=== PATIENT | male | born 1935 | race Caucasian/White ===

== ENCOUNTER 2017-12-27 17:29 | Inpatient (IN) | payer MEDICARE ==
[~2017-12-27] VITALS: Ht 175.3 cm; Wt 108.1 kg
[2017-12-27 18:29] LABS: HEMATOCRIT 33.4 % (39.0-50.0); HEMOGLOBIN 10.7 g/dl (14.0-18.0); IMMATURE GRANULOCYTES 0.6 % (0.0-5.0); MEAN CELL VOLUME 89.5 fL CALC (80.0-100.0); MEAN CORPUSCULAR HGB 28.7 pG CALC (26.0-32.0); NEUT# 6.12 thou/uL (1.82-7.42); RED BLOOD COUNT 3.73 mill/uL (4.70-6.10); RED CELL DISTRI WIDTH 13.2 % (11.5-15.5)
[2017-12-27 18:42] LABS: ALBUMIN 3.6 g/dL (3.2-5.0); BILIRUBIN, TOTAL 0.4 mg/dL (0.0-1.4); CREATININE 2.1 mg/dL (0.7-1.3); POTASSIUM 3.9 mmol/l (3.5-5.1); TOTAL PROTEIN 6.5 g/dL (6.3-8.2)
[2017-12-27] MEDS ORDERED: BUMETANIDE1 MG PO (18:42)
[2017-12-27] MEDS ORDERED: DILTIAZEM CD300 MG PO (18:43)
[2017-12-27] MEDS ORDERED: TAMSULOSIN HCL0.4 MG PO (18:44)
[2017-12-27] MEDS ORDERED: METO50TA52 PO (18:44)
[2017-12-27] MEDS ORDERED: FINASTERIDE5 MG PO (18:45)
[2017-12-27] MEDS ORDERED: VITAMIN D2 PO (18:46)
[2017-12-27] MEDS ORDERED: ASPIRIN81 MG PO (18:47)
[2017-12-27] MEDS ORDERED: HYDRALAZINE25 MG PO (18:49)
[2017-12-27] MEDS ORDERED: AVAPRO300 MG PO (18:50)
[2017-12-27] MEDS ORDERED: ONGLYZA5 MG PO (18:50)
[2017-12-27] MEDS ORDERED: CLONIDINE0.1 MG PO (18:51)
[2017-12-27] MEDS ORDERED: KLOR-CON 1010 MEQ PO (18:51)
[2017-12-27] MEDS ORDERED: LIPITOR20 MG PO (18:51)
[2017-12-27] MEDS ORDERED: LEVOTHYROXIN50 MCG PO (18:52)
[2017-12-27] MEDS ORDERED: ADVAIR DISK1 INH (18:52)
[2017-12-27] MEDS ORDERED: LANTUS100 UNIT/M SC (18:53)
[2017-12-27] MEDS ORDERED: PRADAXA150 MG PO (18:54)
[2017-12-27] MEDS ORDERED: HUMALOG100 UNIT/M SC (18:54)
[2017-12-27] MEDS ORDERED: B121000 MCG PO (18:55)
[2017-12-27] MEDS ORDERED: METOLAZONE2.5 MG PO (18:55)
[2017-12-27] MEDS ORDERED: NITROSTAT0.3 MG SL (18:55)
[2017-12-27 20:32] LABS: URINE BILIRUBIN - DIPSTICK NEGATIVE (NEGATIVE); URINE BLOOD DIPSTICK NEGATIVE (NEGATIVE); URINE CLARITY CLEAR; URINE COLOR YELLOW; URINE GLUCOSE - DIPSTICK 100 mg/dL (NEGATIVE); URINE KETONE NEGATIVE (NEGATIVE); URINE LEUK ESTERASE NEGATIVE (NEGATIVE); URINE NITRITE - DIPSTICK NEGATIVE (Negative); URINE PH 6.5 (4.5-8.0); URINE PROTEIN - DIPSTICK 100 mg/dL (NEG-TRACE); URINE SPECIFIC GRAVITY >=1.030; URINE UROBILINOGEN - DIPSTICK 0.2 E.U./dL (0.2)
[2017-12-27 20:39] LABS: URINE RBC 0-2 RBC/hpf (0-5); URINE WBC 0-2 WBC/hpf (0-5)
[2017-12-27 21:05] VITALS: BP 183/80
[2017-12-28] VITALS (22 sets, daily range): BP systolic 113–174; BP diastolic 57–80
[2017-12-29] VITALS (20 sets, daily range): BP systolic 117–175; BP diastolic 60–96
[2017-12-29 05:31] LABS: HEMATOCRIT 37.2 % (39.0-50.0); HEMOGLOBIN 11.9 g/dl (14.0-18.0); IMMATURE GRANULOCYTES 0.4 % (0.0-5.0); MEAN CELL VOLUME 89.2 fL CALC (80.0-100.0); MEAN CORPUSCULAR HGB 28.5 pG CALC (26.0-32.0); NEUT# 5.87 thou/uL (1.82-7.42); RED BLOOD COUNT 4.17 mill/uL (4.70-6.10)
[2017-12-29 05:54] LABS: ALBUMIN 3.4 g/dL (3.2-5.0); BILIRUBIN, TOTAL 0.4 mg/dL (0.0-1.4); CREATININE 2.4 mg/dL (0.7-1.3); TOTAL PROTEIN 6.2 g/dL (6.3-8.2)
[2017-12-30] VITALS (15 sets, daily range): BP systolic 113–165; BP diastolic 60–81
[2017-12-30 04:50] LABS: HEMATOCRIT 36.1 % (39.0-50.0); HEMOGLOBIN 11.5 g/dl (14.0-18.0); IMMATURE GRANULOCYTES 0.5 % (0.0-5.0); MEAN CELL VOLUME 88.7 fL CALC (80.0-100.0); MEAN CORPUSCULAR HGB 28.3 pG CALC (26.0-32.0); MEAN CORPUSCULAR HGB CONC 31.9 g/L CALC (32.0-36.0); NEUT# 5.36 thou/uL (1.82-7.42); RED BLOOD COUNT 4.07 mill/uL (4.70-6.10); RED CELL DISTRI WIDTH 12.7 % (11.5-15.5)
[2017-12-30 05:09] LABS: ALBUMIN 3.3 g/dL (3.2-5.0); BILIRUBIN, TOTAL 0.5 mg/dL (0.0-1.4); CREATININE 2.2 mg/dL (0.7-1.3); MAGNESIUM 1.8 mg/dL (1.6-2.3); TOTAL PROTEIN 5.8 g/dL (6.3-8.2)
[2017-12-31] VITALS (7 sets, daily range): BP systolic 119–153; BP diastolic 61–74
[2017-12-31 05:55] LABS: HEMATOCRIT 35.7 % (39.0-50.0); HEMOGLOBIN 11.3 g/dl (14.0-18.0); IMMATURE GRANULOCYTES 0.4 % (0.0-5.0); MEAN CELL VOLUME 89.3 fL CALC (80.0-100.0); MEAN CORPUSCULAR HGB 28.3 pG CALC (26.0-32.0); MEAN CORPUSCULAR HGB CONC 31.7 g/L CALC (32.0-36.0); NEUT# 6.27 thou/uL (1.82-7.42); RED CELL DISTRI WIDTH 12.9 % (11.5-15.5)
[2017-12-31 06:15] LABS: ALBUMIN 3.2 g/dL (3.2-5.0); BILIRUBIN, TOTAL 0.5 mg/dL (0.0-1.4); CREATININE 2.3 mg/dL (0.7-1.3); MAGNESIUM 1.9 mg/dL (1.6-2.3); POTASSIUM 3.2 mmol/l (3.5-5.1); TOTAL PROTEIN 5.7 g/dL (6.3-8.2)
== END 2017-12-31 14:17 | disposition home or self-care (01) | DRG 291 ==
LOC: ED 17:29 → ED-I 19:38 → ED 20:24 → MS2 20:25 → ICU 12-28 11:36 → MS2 12-28 11:36 → ICU 12-28 11:59
PROVIDERS: Internal Medicine; ADMIT Internal Medicine; ATTEND Internal Medicine Nephrology
PROC: 0T9B70Z Drainage of Bladder with Drainage Device, Via Natural or Artificial Opening (ICD-10-PCS; principal; 2017-12-27)
DX: I13.0 Hypertensive heart and chronic kidney disease with heart failure and stage 1 through stage 4 chronic kidney disease, or unspecified chronic kidney disease (principal); I50.33 Acute on chronic diastolic (congestive) heart failure; J96.12 Chronic respiratory failure with hypercapnia; J44.9 Chronic obstructive pulmonary disease, unspecified; E11.22 Type 2 diabetes mellitus with diabetic chronic kidney disease; E11.21 Type 2 diabetes mellitus with diabetic nephropathy; N18.3 Chronic kidney disease, stage 3 (moderate); I25.119 Atherosclerotic heart disease of native coronary artery with unspecified angina pectoris; E78.5 Hyperlipidemia, unspecified; I48.0 Paroxysmal atrial fibrillation; G47.33 Obstructive sleep apnea (adult) (pediatric); E55.9 Vitamin D deficiency, unspecified; E03.9 Hypothyroidism, unspecified; N40.0 Benign prostatic hyperplasia without lower urinary tract symptoms; D63.1 Anemia in chronic kidney disease; E66.01 Morbid (severe) obesity due to excess calories; Z95.810 Presence of automatic (implantable) cardiac defibrillator; Z68.37 Body mass index [BMI] 37.0-37.9, adult; Z79.01 Long term (current) use of anticoagulants; Z79.4 Long term (current) use of insulin
CPT/HCPCS: G0378

== ENCOUNTER 2018-03-23 16:52 | Inpatient (IN) | payer MEDICARE ==
[~2018-03-23] VITALS: Ht 175.3 cm; Wt 108.8 kg
[~2018-03-23 16:52] MED LIST: ADVAIR DISK1 INH; ASPIRIN81 MG PO; AVAPRO300 MG PO; B121000 MCG PO; BUMETANIDE1 MG PO; CLONIDINE0.1 MG PO; DILTIAZEM CD300 MG PO; FINASTERIDE5 MG PO; HUMALOG100 UNIT/M SC; HYDRALAZINE25 MG PO; KLOR-CON 1010 MEQ PO; LANTUS100 UNIT/M SC; LEVOTHYROXIN50 MCG PO; LIPITOR20 MG PO; METO50TA52 PO; METOLAZONE2.5 MG PO; NITROSTAT0.3 MG SL; ONGLYZA5 MG PO; PRADAXA150 MG PO; TAMSULOSIN HCL0.4 MG PO; VITAMIN D2 PO
[2018-03-23 18:03] LABS: HEMATOCRIT 39.3 % (39.0-50.0); HEMOGLOBIN 12.4 g/dl (14.0-18.0); IMMATURE GRANULOCYTES 0.5 % (0.0-5.0); MEAN CELL VOLUME 88.5 fL CALC (80.0-100.0); MEAN CORPUSCULAR HGB 27.9 pG CALC (26.0-32.0); MEAN CORPUSCULAR HGB CONC 31.6 g/L CALC (32.0-36.0); NEUT# 6.45 thou/uL (1.82-7.42); RED BLOOD COUNT 4.44 mill/uL (4.70-6.10); RED CELL DISTRI WIDTH 13.2 % (11.5-15.5)
[2018-03-23 18:19] LABS: ALBUMIN 4.1 g/dL (3.2-5.0); CREATININE 1.8 mg/dL (0.7-1.3); POTASSIUM 4.2 mmol/l (3.5-5.1); TOTAL PROTEIN 7.1 g/dL (6.3-8.2)
[2018-03-23 21:21] VITALS: BP 154/72
[2018-03-24] VITALS: BP 145/73
[2018-03-24 04:25] VITALS: BP 143/70
[2018-03-24 06:31] LABS: CHOLESTEROL HDL RATIO 3.3 (<4.4 (CALC))
[2018-03-24 08:00] VITALS: BP 138/77
[2018-03-24 11:20] VITALS: BP 145/76
[2018-03-24 16:02] VITALS: BP 119/6
[2018-03-24 19:40] VITALS: BP 98/59
[2018-03-25] VITALS: BP 122/64
[2018-03-25 04:15] VITALS: BP 127/69
[2018-03-25 05:41] LABS: HEMATOCRIT 35.6 % (39.0-50.0); HEMOGLOBIN 11.1 g/dl (14.0-18.0); IMMATURE GRANULOCYTES 0.2 % (0.0-5.0); MEAN CORPUSCULAR HGB 27.8 pG CALC (26.0-32.0); MEAN CORPUSCULAR HGB CONC 31.2 g/L CALC (32.0-36.0); NEUT# 5.46 thou/uL (1.82-7.42); RED CELL DISTRI WIDTH 13.3 % (11.5-15.5)
[2018-03-25 06:19] LABS: ALBUMIN 3.4 g/dL (3.2-5.0); ALKALINE PHOSPHATASE 75 u/l (38-126); AMYLASE < 30 u/l (30-110); ANION GAP 15 (6-22 (CALC)); BILIRUBIN, TOTAL 0.5 mg/dL (0.0-1.4); BUN 24 mg/dL (8-23); BUN/CREATININE RATIO 11 (12-20 (CALC)); CARBON DIOXIDE 31 mmol/l (22-30); CHLORIDE 100 mmol/l (95-108); CREATININE 2.1 mg/dL (0.7-1.3); GFR 30 ML/MIN (>=60 (CALC)); GFR FOR AFR.AMER. 37 ML/MIN (>=60 (CALC)); LIPASE 38 u/l (23-300); MAGNESIUM 2.1 mg/dL (1.6-2.3); POTASSIUM 3.9 mmol/l (3.5-5.1); SGOT/AST 13 u/l (19-48); SODIUM 142 mmol/l (137-146); TOTAL PROTEIN 5.8 g/dL (6.3-8.2)
[2018-03-25 07:37] VITALS: BP 129/70
[2018-03-25 11:25] VITALS: BP 138/73
[2018-03-25 15:11] VITALS: BP 122/60
[2018-03-25 20:16] VITALS: BP 128/64
[2018-03-26] VITALS: BP 135/73
[2018-03-26 04:08] VITALS: BP 149/82
[2018-03-26 07:44] VITALS: BP 140/77
[2018-03-26 11:02] VITALS: BP 145/71
[2018-03-26 12:34] LABS: MAGNESIUM 2.1 mg/dL (1.6-2.3)
[2018-03-26 15:07] VITALS: BP 129/65
[2018-03-26 18:55] VITALS: BP 123/68
[2018-03-27 00:08] VITALS: BP 140/69
[2018-03-27 04:21] VITALS: BP 152/74
[2018-03-27 07:49] VITALS: BP 145/78
[2018-03-27 07:49] LABS: CREATININE 1.9 mg/dL (0.7-1.3); MAGNESIUM 2.4 mg/dL (1.6-2.3)
[2018-03-27 07:58] LABS: POTASSIUM 5.2 mmol/l (3.5-5.1)
[2018-03-27 10:45] VITALS: BP 144/69
[2018-03-27] MEDS ORDERED: DOXYCYCL HYC100 MG PO (12:23)
[2018-03-27] MEDS ORDERED: MEDDOSEPAK PO (12:23)
[2018-03-27 14:57] VITALS: BP 133/56
[2018-03-27 14:59] VITALS: BP 133/56
== END 2018-03-27 16:56 | disposition home or self-care (01) | DRG 190 ==
LOC: ED 16:52 → ED-I 17:23 → ED 19:10 → MS2 19:11
PROVIDERS: Emergency Medicine; Internal Medicine Nephrology; Nurse Practitioner Family; ADMIT Internal Medicine; ATTEND Internal Medicine
DX: J44.1 Chronic obstructive pulmonary disease with (acute) exacerbation (principal); J18.9 Pneumonia, unspecified organism; I13.0 Hypertensive heart and chronic kidney disease with heart failure and stage 1 through stage 4 chronic kidney disease, or unspecified chronic kidney disease; J44.0 Chronic obstructive pulmonary disease with (acute) lower respiratory infection; I50.9 Heart failure, unspecified; E11.22 Type 2 diabetes mellitus with diabetic chronic kidney disease; E03.9 Hypothyroidism, unspecified; M19.90 Unspecified osteoarthritis, unspecified site; D63.8 Anemia in other chronic diseases classified elsewhere; N18.3 Chronic kidney disease, stage 3 (moderate); E78.5 Hyperlipidemia, unspecified; G47.33 Obstructive sleep apnea (adult) (pediatric); E66.9 Obesity, unspecified; K59.00 Constipation, unspecified; Z95.810 Presence of automatic (implantable) cardiac defibrillator; Z68.34 Body mass index [BMI] 34.0-34.9, adult; Z95.5 Presence of coronary angioplasty implant and graft; Z99.81 Dependence on supplemental oxygen; Z79.02 Long term (current) use of antithrombotics/antiplatelets
CPT/HCPCS: G0378

== ENCOUNTER 2018-04-20 11:36 | Inpatient (IN) | payer MEDICARE ==
[~2018-04-20] VITALS: Ht 175.3 cm; Wt 108.6 kg
[~2018-04-20 11:36] MED LIST changes: +DOXYCYCL HYC100 MG PO; +MEDDOSEPAK PO
[2018-04-20 12:21] LABS: HEMATOCRIT 34.7 % (39.0-50.0); HEMOGLOBIN 10.7 g/dl (14.0-18.0); IMMATURE GRANULOCYTES 0.5 % (0.0-5.0); MEAN CORPUSCULAR HGB 27.4 pG CALC (26.0-32.0); MEAN CORPUSCULAR HGB CONC 30.8 g/L CALC (32.0-36.0); NEUT# 7.18 thou/uL (1.82-7.42); RED BLOOD COUNT 3.9 mill/uL (4.70-6.10); RED CELL DISTRI WIDTH 14.1 % (11.5-15.5)
[2018-04-20 12:35] LABS: ALBUMIN 3.9 g/dL (3.2-5.0); BILIRUBIN, TOTAL 0.7 mg/dL (0.0-1.4); CREATININE 2.7 mg/dL (0.7-1.3)
[2018-04-20 12:36] LABS: POTASSIUM 5.4 mmol/l (3.5-5.1); TOTAL PROTEIN 7.2 g/dL (6.3-8.2)
[2018-04-20] MEDS ORDERED: ONGLYZA5 MG PO (12:50)
[2018-04-20] MEDS ORDERED: ADVAIR DISK1 INH (12:53)
[2018-04-20 14:03] LABS: URINE BILIRUBIN - DIPSTICK NEGATIVE (NEGATIVE); URINE BLOOD DIPSTICK NEGATIVE (NEGATIVE); URINE COLOR YELLOW; URINE GLUCOSE - DIPSTICK NEGATIVE (NEGATIVE); URINE KETONE NEGATIVE (NEGATIVE); URINE LEUK ESTERASE NEGATIVE (NEGATIVE); URINE NITRITE - DIPSTICK NEGATIVE (Negative); URINE PROTEIN - DIPSTICK 100 mg/dL (NEG-TRACE); URINE UROBILINOGEN - DIPSTICK 0.2 E.U./dL (0.2)
[2018-04-20 14:21] LABS: URINE RBC 0-2 RBC/hpf (0-5); URINE WBC 0-2 WBC/hpf (0-5)
[2018-04-20 16:20] VITALS: BP 116/67
[2018-04-20 20:23] VITALS: BP 120/61
[2018-04-21 00:19] VITALS: BP 136/73
[2018-04-21 04:17] VITALS: BP 121/60
[2018-04-21 05:16] LABS: HEMATOCRIT 32.2 % (39.0-50.0); HEMOGLOBIN 9.9 g/dl (14.0-18.0); IMMATURE GRANULOCYTES 0.8 % (0.0-5.0); MEAN CELL VOLUME 90.2 fL CALC (80.0-100.0); MEAN CORPUSCULAR HGB 27.7 pG CALC (26.0-32.0); MEAN CORPUSCULAR HGB CONC 30.7 g/L CALC (32.0-36.0); NEUT# 5.28 thou/uL (1.82-7.42); RED BLOOD COUNT 3.57 mill/uL (4.70-6.10); RED CELL DISTRI WIDTH 13.9 % (11.5-15.5)
[2018-04-21 05:41] LABS: ALBUMIN 3.3 g/dL (3.2-5.0); ALKALINE PHOSPHATASE 96 u/l (38-126); AMYLASE < 30 u/l (30-110); ANION GAP 17 (6-22 (CALC)); BILIRUBIN, TOTAL 0.4 mg/dL (0.0-1.4); BUN 36 mg/dL (8-23); BUN/CREATININE RATIO 13 (12-20 (CALC)); CARBON DIOXIDE 28 mmol/l (22-30); CHLORIDE 96 mmol/l (95-108); CREATININE 2.8 mg/dL (0.7-1.3); GFR 22 ML/MIN (>=60 (CALC)); GFR FOR AFR.AMER. 26 ML/MIN (>=60 (CALC)); LIPASE 32 u/l (23-300); MAGNESIUM 2.1 mg/dL (1.6-2.3); SGOT/AST 15 u/l (19-48); SODIUM 135 mmol/l (137-146)
[2018-04-21 05:45] LABS: POTASSIUM 5.6 mmol/l (3.5-5.1)
[2018-04-21 07:52] VITALS: BP 125/68
[2018-04-21 11:22] VITALS: BP 113/64
[2018-04-21 15:37] VITALS: BP 107/78
[2018-04-21 19:00] VITALS: BP 112/67
[2018-04-22] VITALS (8 sets, daily range): BP systolic 94–132; BP diastolic 52–77
[2018-04-23 04:00] VITALS: BP 111/57
[2018-04-23 04:59] LABS: HEMATOCRIT 33.4 % (39.0-50.0); HEMOGLOBIN 10.1 g/dl (14.0-18.0); IMMATURE GRANULOCYTES 0.7 % (0.0-5.0); MEAN CELL VOLUME 90.8 fL CALC (80.0-100.0); MEAN CORPUSCULAR HGB 27.4 pG CALC (26.0-32.0); MEAN CORPUSCULAR HGB CONC 30.2 g/L CALC (32.0-36.0); NEUT# 6.28 thou/uL (1.82-7.42); RED BLOOD COUNT 3.68 mill/uL (4.70-6.10); RED CELL DISTRI WIDTH 13.5 % (11.5-15.5)
[2018-04-23 05:41] LABS: ALBUMIN 3.4 g/dL (3.2-5.0); BILIRUBIN, TOTAL 0.7 mg/dL (0.0-1.4); CREATININE 3.1 mg/dL (0.7-1.3); MAGNESIUM 2.3 mg/dL (1.6-2.3); POTASSIUM 5.1 mmol/l (3.5-5.1); TOTAL PROTEIN 6.1 g/dL (6.3-8.2)
[2018-04-23 08:12] VITALS: BP 113/67
[2018-04-23 11:39] VITALS: BP 131/67
[2018-04-23 14:44] VITALS: BP 118/58
[2018-04-23 19:27] VITALS: BP 124/57
[2018-04-23 23:47] VITALS: BP 131/77
[2018-04-24 04:27] VITALS: BP 102/79
[2018-04-24 07:23] VITALS: BP 148/74
[2018-04-24 11:22] VITALS: BP 104/62
[2018-04-24 15:05] VITALS: BP 106/58
[2018-04-24 19:34] VITALS: BP 109/66
[2018-04-24 23:32] VITALS: BP 110/71
[2018-04-25 04:48] VITALS: BP 119/73
[2018-04-25 05:22] LABS: HEMATOCRIT 31.6 % (39.0-50.0); HEMOGLOBIN 9.6 g/dl (14.0-18.0); IMMATURE GRANULOCYTES 0.9 % (0.0-5.0); MEAN CELL VOLUME 89.8 fL CALC (80.0-100.0); MEAN CORPUSCULAR HGB 27.3 pG CALC (26.0-32.0); MEAN CORPUSCULAR HGB CONC 30.4 g/L CALC (32.0-36.0); NEUT# 5.94 thou/uL (1.82-7.42); RED BLOOD COUNT 3.52 mill/uL (4.70-6.10); RED CELL DISTRI WIDTH 13.8 % (11.5-15.5)
[2018-04-25 05:51] LABS: ALBUMIN 3.2 g/dL (3.2-5.0); BILIRUBIN, TOTAL 0.5 mg/dL (0.0-1.4); POTASSIUM 4.6 mmol/l (3.5-5.1); TOTAL PROTEIN 5.9 g/dL (6.3-8.2)
[2018-04-25 06:29] LABS: MAGNESIUM 2.3 mg/dL (1.6-2.3)
[2018-04-25 07:40] VITALS: BP 118/71
[2018-04-25 11:58] VITALS: BP 116/54
[2018-04-25 16:00] VITALS: BP 11/70
[2018-04-25 19:32] VITALS: BP 134/61
[2018-04-26 00:35] VITALS: BP 90/55
[2018-04-26 04:30] VITALS: BP 93/67
[2018-04-26 05:34] LABS: HEMATOCRIT 30.4 % (39.0-50.0); HEMOGLOBIN 9.4 g/dl (14.0-18.0); IMMATURE GRANULOCYTES 0.9 % (0.0-5.0); MEAN CELL VOLUME 89.1 fL CALC (80.0-100.0); MEAN CORPUSCULAR HGB 27.6 pG CALC (26.0-32.0); MEAN CORPUSCULAR HGB CONC 30.9 g/L CALC (32.0-36.0); NEUT# 5.47 thou/uL (1.82-7.42); RED BLOOD COUNT 3.41 mill/uL (4.70-6.10)
[2018-04-26 05:48] LABS: BILIRUBIN, TOTAL 0.4 mg/dL (0.0-1.4); MAGNESIUM 2.3 mg/dL (1.6-2.3); POTASSIUM 4.7 mmol/l (3.5-5.1); TOTAL PROTEIN 5.5 g/dL (6.3-8.2)
[2018-04-26 08:09] VITALS: BP 121/72
[2018-04-26 12:00] VITALS: BP 96/53
[2018-04-26 16:20] VITALS: BP 116/63
[2018-04-26 19:12] VITALS: BP 104/59
[2018-04-27] VITALS (7 sets, daily range): BP systolic 102–122; BP diastolic 56–77
[2018-04-27 04:57] LABS: HEMATOCRIT 30.4 % (39.0-50.0); HEMOGLOBIN 9.4 g/dl (14.0-18.0); IMMATURE GRANULOCYTES 1.1 % (0.0-5.0); MEAN CELL VOLUME 89.7 fL CALC (80.0-100.0); MEAN CORPUSCULAR HGB 27.7 pG CALC (26.0-32.0); MEAN CORPUSCULAR HGB CONC 30.9 g/L CALC (32.0-36.0); NEUT# 6.63 thou/uL (1.82-7.42); RED BLOOD COUNT 3.39 mill/uL (4.70-6.10); RED CELL DISTRI WIDTH 14.2 % (11.5-15.5)
[2018-04-27 05:35] LABS: BILIRUBIN, TOTAL 0.5 mg/dL (0.0-1.4); CREATININE 3.1 mg/dL (0.7-1.3); MAGNESIUM 2.4 mg/dL (1.6-2.3); POTASSIUM 4.8 mmol/l (3.5-5.1); TOTAL PROTEIN 5.5 g/dL (6.3-8.2)
[2018-04-28 00:10] VITALS: BP 100/69
[2018-04-28 04:35] VITALS: BP 112/69
[2018-04-28 05:49] LABS: HEMATOCRIT 31.8 % (39.0-50.0); HEMOGLOBIN 9.9 g/dl (14.0-18.0); IMMATURE GRANULOCYTES 1.5 % (0.0-5.0); MEAN CELL VOLUME 89.6 fL CALC (80.0-100.0); MEAN CORPUSCULAR HGB 27.9 pG CALC (26.0-32.0); MEAN CORPUSCULAR HGB CONC 31.1 g/L CALC (32.0-36.0); NEUT# 6.81 thou/uL (1.82-7.42); RED BLOOD COUNT 3.55 mill/uL (4.70-6.10); RED CELL DISTRI WIDTH 14.4 % (11.5-15.5)
[2018-04-28 06:34] LABS: ALBUMIN 3.3 g/dL (3.2-5.0); BILIRUBIN, TOTAL 0.5 mg/dL (0.0-1.4); CREATININE 3.3 mg/dL (0.7-1.3); MAGNESIUM 2.3 mg/dL (1.6-2.3); POTASSIUM 4.8 mmol/l (3.5-5.1); TOTAL PROTEIN 6.1 g/dL (6.3-8.2)
[2018-04-28 07:53] VITALS: BP 139/73
[2018-04-28 11:05] VITALS: BP 112/66
[2018-04-28 15:10] VITALS: BP 113/66
[2018-04-28 19:16] VITALS: BP 103/57
[2018-04-29 00:08] VITALS: BP 127/61
[2018-04-29 03:48] VITALS: BP 119/67
[2018-04-29 05:50] LABS: HEMATOCRIT 30.6 % (39.0-50.0); HEMOGLOBIN 9.2 g/dl (14.0-18.0); IMMATURE GRANULOCYTES 1.6 % (0.0-5.0); MEAN CELL VOLUME 90.8 fL CALC (80.0-100.0); MEAN CORPUSCULAR HGB 27.3 pG CALC (26.0-32.0); MEAN CORPUSCULAR HGB CONC 30.1 g/L CALC (32.0-36.0); NEUT# 5.97 thou/uL (1.82-7.42); RED BLOOD COUNT 3.37 mill/uL (4.70-6.10); RED CELL DISTRI WIDTH 14.5 % (11.5-15.5)
[2018-04-29 06:14] LABS: BILIRUBIN, TOTAL 0.4 mg/dL (0.0-1.4); CREATININE 3.2 mg/dL (0.7-1.3); MAGNESIUM 2.3 mg/dL (1.6-2.3); POTASSIUM 4.6 mmol/l (3.5-5.1); TOTAL PROTEIN 5.5 g/dL (6.3-8.2)
[2018-04-29 08:40] VITALS: BP 119/71
[2018-04-29 11:00] VITALS: BP 122/75
[2018-04-29 15:05] VITALS: BP 122/67
[2018-04-29 20:20] VITALS: BP 108/63
[2018-04-30 00:30] VITALS: BP 104/60
[2018-04-30 04:35] VITALS: BP 111/66
[2018-04-30 07:09] LABS: HEMATOCRIT 30.4 % (39.0-50.0); HEMOGLOBIN 9.3 g/dl (14.0-18.0); IMMATURE GRANULOCYTES 2.1 % (0.0-5.0); MEAN CELL VOLUME 89.7 fL CALC (80.0-100.0); MEAN CORPUSCULAR HGB 27.4 pG CALC (26.0-32.0); MEAN CORPUSCULAR HGB CONC 30.6 g/L CALC (32.0-36.0); NEUT# 7.61 thou/uL (1.82-7.42); RED BLOOD COUNT 3.39 mill/uL (4.70-6.10); RED CELL DISTRI WIDTH 14.6 % (11.5-15.5)
[2018-04-30 07:19] LABS: ALBUMIN 3.3 g/dL (3.2-5.0); BILIRUBIN, TOTAL 0.5 mg/dL (0.0-1.4); CREATININE 3.2 mg/dL (0.7-1.3); MAGNESIUM 2.2 mg/dL (1.6-2.3); TOTAL PROTEIN 6.5 g/dL (6.3-8.2)
[2018-04-30 08:12] VITALS: BP 124/58
[2018-04-30 11:50] VITALS: BP 109/78
[2018-04-30 16:00] VITALS: BP 115/56
[2018-04-30 20:01] VITALS: BP 116/57
[2018-05-01 00:10] VITALS: BP 116/64
[2018-05-01 05:35] LABS: HEMATOCRIT 33.6 % (39.0-50.0); HEMOGLOBIN 10.3 g/dl (14.0-18.0); IMMATURE GRANULOCYTES 1.9 % (0.0-5.0); MEAN CELL VOLUME 89.8 fL CALC (80.0-100.0); MEAN CORPUSCULAR HGB 27.5 pG CALC (26.0-32.0); MEAN CORPUSCULAR HGB CONC 30.7 g/L CALC (32.0-36.0); NEUT# 9.93 thou/uL (1.82-7.42); RED BLOOD COUNT 3.74 mill/uL (4.70-6.10); RED CELL DISTRI WIDTH 14.7 % (11.5-15.5)
[2018-05-01 05:51] VITALS: BP 139/79
[2018-05-01 06:11] LABS: MAGNESIUM 2.2 mg/dL (1.6-2.3); POTASSIUM 4.4 mmol/l (3.5-5.1)
[2018-05-01 08:49] VITALS: BP 139/78
[2018-05-01 12:00] VITALS: BP 137/74
[2018-05-01 15:57] VITALS: BP 106/54
[2018-05-01 19:45] VITALS: BP 121/57
[2018-05-02] VITALS (18 sets, daily range): BP systolic 108–160; BP diastolic 53–86
[2018-05-02 04:42] LABS: HEMATOCRIT 30.8 % (39.0-50.0); HEMOGLOBIN 9.5 g/dl (14.0-18.0); IMMATURE GRANULOCYTES 1.4 % (0.0-5.0); MEAN CELL VOLUME 90.3 fL CALC (80.0-100.0); MEAN CORPUSCULAR HGB 27.9 pG CALC (26.0-32.0); MEAN CORPUSCULAR HGB CONC 30.8 g/L CALC (32.0-36.0); NEUT# 8.6 thou/uL (1.82-7.42); RED BLOOD COUNT 3.41 mill/uL (4.70-6.10); RED CELL DISTRI WIDTH 14.9 % (11.5-15.5)
[2018-05-02 05:13] LABS: CREATININE 2.8 mg/dL (0.7-1.3); MAGNESIUM 2.1 mg/dL (1.6-2.3); POTASSIUM 4.4 mmol/l (3.5-5.1)
[2018-05-03] VITALS (23 sets, daily range): BP systolic 100–182; BP diastolic 57–95
[2018-05-03 05:41] LABS: HEMOGLOBIN 10.1 g/dl (14.0-18.0); IMMATURE GRANULOCYTES 1.4 % (0.0-5.0); MEAN CELL VOLUME 90.9 fL CALC (80.0-100.0); MEAN CORPUSCULAR HGB 27.8 pG CALC (26.0-32.0); MEAN CORPUSCULAR HGB CONC 30.6 g/L CALC (32.0-36.0); NEUT# 9.05 thou/uL (1.82-7.42); RED BLOOD COUNT 3.63 mill/uL (4.70-6.10); RED CELL DISTRI WIDTH 15.5 % (11.5-15.5)
[2018-05-03 05:50] LABS: ALBUMIN 3.2 g/dL (3.2-5.0); BILIRUBIN, TOTAL 0.5 mg/dL (0.0-1.4); CREATININE 2.7 mg/dL (0.7-1.3); POTASSIUM 4.1 mmol/l (3.5-5.1); TOTAL PROTEIN 5.9 g/dL (6.3-8.2)
[2018-05-04] VITALS (16 sets, daily range): BP systolic 109–151; BP diastolic 57–88
[2018-05-04 05:01] LABS: HEMOGLOBIN 9.4 g/dl (14.0-18.0); IMMATURE GRANULOCYTES 1.5 % (0.0-5.0); MEAN CELL VOLUME 90.9 fL CALC (80.0-100.0); MEAN CORPUSCULAR HGB 27.6 pG CALC (26.0-32.0); MEAN CORPUSCULAR HGB CONC 30.3 g/L CALC (32.0-36.0); NEUT# 8.52 thou/uL (1.82-7.42); RED BLOOD COUNT 3.41 mill/uL (4.70-6.10); RED CELL DISTRI WIDTH 15.9 % (11.5-15.5)
[2018-05-04 05:42] LABS: ALBUMIN 2.9 g/dL (3.2-5.0); BILIRUBIN, TOTAL 0.5 mg/dL (0.0-1.4); CREATININE 2.6 mg/dL (0.7-1.3); MAGNESIUM 2.1 mg/dL (1.6-2.3); POTASSIUM 4.1 mmol/l (3.5-5.1); TOTAL PROTEIN 5.5 g/dL (6.3-8.2)
[2018-05-05] VITALS (10 sets, daily range): BP systolic 104–149; BP diastolic 55–87
[2018-05-05 05:15] LABS: HEMATOCRIT 31.4 % (39.0-50.0); HEMOGLOBIN 9.5 g/dl (14.0-18.0); MEAN CORPUSCULAR HGB 27.2 pG CALC (26.0-32.0); MEAN CORPUSCULAR HGB CONC 30.3 g/L CALC (32.0-36.0); NEUT# 7.99 thou/uL (1.82-7.42); RED BLOOD COUNT 3.49 mill/uL (4.70-6.10); RED CELL DISTRI WIDTH 15.9 % (11.5-15.5)
[2018-05-05 05:46] LABS: ALBUMIN 2.9 g/dL (3.2-5.0); BILIRUBIN, TOTAL 0.5 mg/dL (0.0-1.4); CREATININE 2.4 mg/dL (0.7-1.3); MAGNESIUM 2.2 mg/dL (1.6-2.3); POTASSIUM 3.8 mmol/l (3.5-5.1); TOTAL PROTEIN 5.5 g/dL (6.3-8.2)
[2018-05-06] VITALS (8 sets, daily range): BP systolic 108–162; BP diastolic 59–87
[2018-05-06 05:46] LABS: HEMATOCRIT 30.5 % (39.0-50.0); HEMOGLOBIN 9.1 g/dl (14.0-18.0); IMMATURE GRANULOCYTES 0.9 % (0.0-5.0); MEAN CELL VOLUME 91.6 fL CALC (80.0-100.0); MEAN CORPUSCULAR HGB 27.3 pG CALC (26.0-32.0); MEAN CORPUSCULAR HGB CONC 29.8 g/L CALC (32.0-36.0); NEUT# 7.29 thou/uL (1.82-7.42); RED BLOOD COUNT 3.33 mill/uL (4.70-6.10); RED CELL DISTRI WIDTH 15.9 % (11.5-15.5)
[2018-05-06 06:33] LABS: ALBUMIN 2.8 g/dL (3.2-5.0); BILIRUBIN, TOTAL 0.4 mg/dL (0.0-1.4); CREATININE 2.2 mg/dL (0.7-1.3); MAGNESIUM 2.1 mg/dL (1.6-2.3); TOTAL PROTEIN 5.2 g/dL (6.3-8.2)
[2018-05-06 06:34] LABS: POTASSIUM 3.6 mmol/l (3.5-5.1)
[2018-05-07 00:05] VITALS: BP 104/63
[2018-05-07 04:11] VITALS: BP 138/71
[2018-05-07 09:30] VITALS: BP 130/67
[2018-05-07 11:00] VITALS: BP 141/74
[2018-05-07 15:53] VITALS: BP 136/73
[2018-05-07 19:20] VITALS: BP 104/54
[2018-05-08 00:25] VITALS: BP 19/73
[2018-05-08 04:26] VITALS: BP 124/70
[2018-05-08 07:22] VITALS: BP 113/65
[2018-05-08 11:30] VITALS: BP 135/70
[2018-05-08 15:15] VITALS: BP 147/75
[2018-05-08] MEDS ORDERED: CIPROFLOXACIN500 M1 PO (15:23)
== END 2018-05-08 16:15 | disposition home health service (06) | DRG 193 ==
LOC: ED 11:36 → ED-I 15:00 → ED 15:43 → MS2 15:44 → ICU 05-02 13:27 → MS2 05-05 14:10
PROVIDERS: Emergency Medicine; Nurse Practitioner Family; ADMIT Internal Medicine Nephrology; ATTEND Internal Medicine Nephrology
PROC: 0T9B70Z Drainage of Bladder with Drainage Device, Via Natural or Artificial Opening (ICD-10-PCS; principal; 2018-04-28)
PROC: 0W993ZZ Drainage of Right Pleural Cavity, Percutaneous Approach (ICD-10-PCS; 2018-05-04)
PROC: 5A09357 Assistance with Respiratory Ventilation, Less than 24 Consecutive Hours, Continuous Positive Airway Pressure (ICD-10-PCS; 2018-05-04)
DX: J18.9 Pneumonia, unspecified organism (principal); I50.23 Acute on chronic systolic (congestive) heart failure; J44.1 Chronic obstructive pulmonary disease with (acute) exacerbation; J44.0 Chronic obstructive pulmonary disease with (acute) lower respiratory infection; I13.0 Hypertensive heart and chronic kidney disease with heart failure and stage 1 through stage 4 chronic kidney disease, or unspecified chronic kidney disease; J96.10 Chronic respiratory failure, unspecified whether with hypoxia or hypercapnia; J91.8 Pleural effusion in other conditions classified elsewhere; I31.3 Pericardial effusion (noninflammatory); N18.4 Chronic kidney disease, stage 4 (severe); N17.9 Acute kidney failure, unspecified; E11.22 Type 2 diabetes mellitus with diabetic chronic kidney disease; E03.9 Hypothyroidism, unspecified; I48.2 Chronic atrial fibrillation; E87.5 Hyperkalemia; E78.5 Hyperlipidemia, unspecified; D63.1 Anemia in chronic kidney disease; I25.118 Atherosclerotic heart disease of native coronary artery with other forms of angina pectoris; E11.51 Type 2 diabetes mellitus with diabetic peripheral angiopathy without gangrene; N40.1 Benign prostatic hyperplasia with lower urinary tract symptoms; R33.8 Other retention of urine; R80.8 Other proteinuria; M89.8X9 Other specified disorders of bone, unspecified site; K59.00 Constipation, unspecified; G47.33 Obstructive sleep apnea (adult) (pediatric); Y95 Nosocomial condition; Z95.810 Presence of automatic (implantable) cardiac defibrillator; Z99.81 Dependence on supplemental oxygen; Z95.5 Presence of coronary angioplasty implant and graft; Z79.4 Long term (current) use of insulin; Z79.02 Long term (current) use of antithrombotics/antiplatelets
CPT/HCPCS: G0378; J0885; J1756